=== PATIENT | female | born 1985 | race African-American/Black ===

== ENCOUNTER 2024-07-26 08:04 | Inpatient (IN) | payer MEDICARE, MEDICAID ==
[2024-07-26] MEDS ORDERED: FLUV50 PO (12:36)
[2024-07-26] MEDS ORDERED: OLAN5TAB52 PO (12:36)
[2024-07-26] MEDS ORDERED: PROP20TA18 PO (12:36)
[2024-07-26] MEDS ORDERED: PROP60CA31 PO (13:11)
[2024-07-26] MEDS ORDERED: MAG HYDROX/ALUMINUM HYD/SIMETH ES 30 ML SUSPENSION UDCUP PO PRN (13:15)
[2024-07-26] MEDS ORDERED: MAGNESIUM HYDROXIDE SUSPENSION 30 ML UDCUP PO PRN (13:15)
[2024-07-26] MEDS ORDERED: HALOPERIDOL 5 MG TABLET PO PRN (13:15)
[2024-07-26] MEDS ORDERED: LOPERAMIDE HCL 2 MG CAPSULE PO PRN (13:15)
[2024-07-26 13:39] VITALS: BP 107/67; PULSE 90; RESP 18; TEMP 97.8
[2024-07-26] MEDS ORDERED: INFLUENZA VIRUS VACCINE TVS (6MO+) 2024-25/PF 45 MCG/0.5 ML SYRINGE IM. ONE (14:30)
[2024-07-26 18:06] LABS: GLUCOMETER DEV NAME(LOC) POC.BV; POC SARS-COV2 AG, FIA NEGATIVE (NEGATIVE)
[2024-07-26 22:44] VITALS: BP 111/63; PULSE 86; RESP 20; TEMP 99.8; O2SAT 96
[2024-07-27 06:21] VITALS: BP 109/70; PULSE 84; RESP 22; TEMP 97.9; O2SAT 93
[2024-07-27] MEDS: ALBUTEROL SULFATE HFA 90 MCG/PUFF 8 GM INHALER IH PRN (06:27)
[2024-07-27 13:11] VITALS: BP 130/78; PULSE 83; RESP 18; TEMP 97.6; O2SAT 96
[2024-07-27] MEDS ORDERED: ALBUTEROL SULFATE 2.5 MG/0.5 ML NEB SOLUTION NEB PRN (14:00)
[2024-07-27] MEDS ORDERED: IPRATROPIUM BROMIDE 0.5 MG/2.5 ML NEB SOLUTION NEB PRN (14:00)
[2024-07-27] MEDS: FLUTICASONE/VILANTEROL 200-25 MCG/INH INHALER [14] IH SCH (14:37)
[2024-07-27] MEDS: ACETAMINOPHEN 325 MG TABLET PO PRN (18:03)
[2024-07-27] MEDS: ZOLPIDEM TARTRATE 10 MG TABLET PO PRN (21:56)
[2024-07-27] MEDS: OLANZapine 5 MG TABLET PO SCH (21:56)
[2024-07-27 22:00] VITALS: BP 128/90; PULSE 78; RESP 18; TEMP 97.8; O2SAT 100
[2024-07-28 09:30] VITALS: BP 109/57; PULSE 83; RESP 17; TEMP 96.8; O2SAT 97
[2024-07-28] MEDS: TraMADol HCL 50 MG TABLET PO PRN (09:33)
[2024-07-28] MEDS: FluvoxaMINE MALEATE 50 MG TABLET PO SCH (09:34)
[2024-07-28] MEDS: PredniSONE 20 MG TABLET PO SCH (09:34)
[2024-07-28 21:53] VITALS: BP 111/78; PULSE 75; RESP 18; TEMP 98.9; O2SAT 100
[2024-07-29 08:42] VITALS: BP 117/68; PULSE 80; RESP 18; TEMP 98.7; O2SAT 99
[2024-07-29] MEDS: LORazepam 2 MG TABLET PO PRN (10:16)
[2024-07-29 20:30] VITALS: BP 109/72; PULSE 61; RESP 19; TEMP 97.4; O2SAT 97
[2024-07-30 09:59] VITALS: BP 102/65; PULSE 108; RESP 17; TEMP 97.6; O2SAT 97
[2024-07-30] MEDS ORDERED: PRED-554 PO (10:14)
[2024-07-30] MEDS ORDERED: OLAN5TAB52 PO (10:14)
[2024-07-30] MEDS ORDERED: FLUV50 PO (10:14)
[2024-07-30] MEDS ORDERED: FLUT1BLS IH (10:14)
== END 2024-07-30 13:30 | disposition home or self-care (01) | DRG 885 ==
LOC: B2X 13:05 → 3EX 07-27 12:00
PROVIDERS: ADMIT Psychiatry & Neurology Psychiatry; ATTEND Psychiatry & Neurology Psychiatry
PROC: GZHZZZZ Group Psychotherapy (ICD-10-PCS; principal; 2024-07-27)
PROC: GZ52ZZZ Individual Psychotherapy, Cognitive (ICD-10-PCS; 2024-07-27)
DX: F33.2 Major depressive disorder, recurrent severe without psychotic features (principal); F79 Unspecified intellectual disabilities; R45.851 Suicidal ideations; F42.9 Obsessive-compulsive disorder, unspecified; J45.909 Unspecified asthma, uncomplicated; F41.9 Anxiety disorder, unspecified; D64.9 Anemia, unspecified; G47.00 Insomnia, unspecified; G89.29 Other chronic pain; Z20.822 Contact with and (suspected) exposure to COVID-19; Z79.899 Other long term (current) drug therapy; Q05.9 Spina bifida, unspecified; Z63.4 Disappearance and death of family member
CPT/HCPCS: G0378; J3535

== ENCOUNTER 2024-07-26 16:43 | Emergency (ER) | payer MEDICARE, OTHER ==
[~2024-07-26] VITALS: Ht 170.2 cm; Wt 50.0 kg
[~2024-07-26 16:43] MED LIST: FLUV50 PO; OLAN5TAB52 PO; PROP20TA18 PO; PROP60CA31 PO
[2024-07-26 17:04] VITALS: TEMP 98.4
[2024-07-26 19:07] LABS: COVID AG,FIA SOURCE NASAL SWAB
[2024-07-26 19:28] LABS: SARS-COV2 (COVID) ANTIGEN,FIA Negative (Negative)
[2024-07-26 20:11] LABS: HEMATOCRIT 35.5 % (36-46); HEMOGLOBIN 11.9 g/dL (12.0-16.0); MEAN CORPUSCULAR HEMOGLOBIN 29.7 pg (26.0-34.0); MEAN CORPUSCULAR HGB CONC 33.4 G/dL (31.0-37.0); MEAN CORPUSCULAR VOLUME 89 fL (80-100); PLATELET COUNT (AUTO) 229 K/uL (150-450); RED BLOOD CELL COUNT(AUTO) 3.99 MIL/uL (4.00-5.20); RED CELL DISTRIBUTION WIDTH 13.6 % (11.5-14.5); WHITE BLOOD COUNT (AUTO) 5.9 K/uL (4.5-11.0)
[2024-07-26 20:12] LABS: PH,URINE DRUG SCREEN 6.5 (5.0-8.0)
[2024-07-26 20:18] LABS: ALCOHOL, URINE DRUG SCREEN NEGATIVE (NEGATIVE); AMPHET/METH SCREEN,URINE NEGATIVE (NEGATIVE); BARBITURATE SCREEN, URINE NEGATIVE (NEGATIVE); BENZODIAZEPINES SCREEN,URINE NEGATIVE (NEGATIVE); CANNABINOID SCREEN,URINE NEGATIVE (NEGATIVE); COCAINE SCREEN,URINE NEGATIVE (NEGATIVE); METHADONE SCREEN, URINE NEGATIVE (NEGATIVE); OPIATE SCREEN,URINE NEGATIVE (NEGATIVE); PHENCYCLIDINE SCREEN,URINE NEGATIVE (NEGATIVE)
[2024-07-26 20:21] LABS: ANION GAP 2 mmol/L (8-16); CALCIUM, TOTAL 9.1 mg/dL (8.8-10.5); CARBON DIOXIDE 31 mmol/L (22-29); CHLORIDE 106 mmol/L (98-107); CREATININE 1.05 mg/dL (0.60-1.30); GLOMERULAR FILTR. RATE CALC > 60 mL/min (>60); GLUCOSE,RANDOM 86 mg/dL (70-110); POTASSIUM 3.7 mmol/L (3.5-5.1); SODIUM SERUM 138 mmol/L (136-145); UREA NITROGEN, BLOOD 20 mg/dL (7-18)
[2024-07-26 20:34] LABS: ALCOHOL, BLOOD (SERUM) < 3 mg/dL (0-10)
[2024-07-26 20:37] LABS: BAND NEUTROPHILS % (MANUAL) 7 % (0-5); BASOPHILS % (MANUAL) 1 % (0-2); EOSINOPHILS % (MANUAL) 17 % (1-6); LYMPHOCYTES % (MANUAL) 32 % (22-44); MONOCYTES % (MANUAL) 10 % (2-9); SEGMENTED NEUTROPHILS % 33 % (40-70); TOTAL CELLS COUNTED 100
[2024-07-26 21:37] VITALS: BP 111/71; PULSE 76; RESP 16; O2SAT 96
== END 2024-07-26 22:00 | disposition short-term general hospital (02) ==
LOC: EMS 16:43
DX: R45.851 Suicidal ideations (principal); F32.9 Major depressive disorder, single episode, unspecified; J45.909 Unspecified asthma, uncomplicated; Z88.8 Allergy status to other drugs, medicaments and biological substances; Z79.899 Other long term (current) drug therapy; Z20.822 Contact with and (suspected) exposure to COVID-19
CPT/HCPCS: 99285; 87426; 80048; 84703; 85025; 36415; 80307; G0480

== ENCOUNTER 2024-07-27 07:12 | Emergency (ER) | payer MEDICARE, OTHER ==
[~2024-07-27] VITALS: Ht 165.1 cm; Wt 52.3 kg
[~2024-07-27 07:12] MED LIST changes: -PROP20TA18 PO
[2024-07-27] MEDS: IPRATROPIUM BROMIDE 0.5 MG/2.5 ML NEB SOLUTION NEB ONE (07:55)
[2024-07-27] MEDS: ALBUTEROL SULFATE 2.5 MG/0.5 ML NEB SOLUTION NEB ONE (07:55)
[2024-07-27 08:08] VITALS: PULSE 86; RESP 16; O2SAT 98
[2024-07-27] MEDS: ACETAMINOPHEN 500 MG TABLET PO ONE (08:12)
[2024-07-27] MEDS: PredniSONE 20 MG TABLET PO ONE (08:12)
[2024-07-27 09:10] LABS: INFLUENZA TYPE A NEGATIVE FOR TYPE A (NEGATIVE); INFLUENZA TYPE B NEGATIVE FOR TYPE B (NEGATIVE)
[2024-07-27 11:08] VITALS: BP 133/81; PULSE 85; RESP 19; TEMP 97.9; O2SAT 97
== END 2024-07-27 12:03 | disposition admitted as inpatient to this hospital (09) ==
LOC: EMS 07:12
DX: J45.901 Unspecified asthma with (acute) exacerbation (principal); F32.9 Major depressive disorder, single episode, unspecified; G89.4 Chronic pain syndrome; Z79.899 Other long term (current) drug therapy; Z98.890 Other specified postprocedural states
CPT/HCPCS: 99285; 71045; 87804; 94640; J7512; 99284; J7613